=== PATIENT | male | born 1940 | race Caucasian/White ===

== ENCOUNTER 2017-12-24 05:06 | Emergency (ER) | payer MEDICARE, OTHER ==
[~2017-12-24] VITALS: Ht 175.3 cm; Wt 90.7 kg
[~2017-12-24 05:06] MED LIST: CETI10 PO; MECL25 PO; Norco 5-325 Ta1 EACH PO
[2017-12-24] MEDS ORDERED: Lotrel 5-40 MG1 EACH PO (06:00)
[2017-12-24] MEDS ORDERED: Mupirocin22 GM TOP (06:55)
[2017-12-24] MEDS ORDERED: Bactrim 400-801 EACH PO (06:55)
== END 2017-12-24 07:08 | disposition home or self-care (01) ==
LOC: ER 05:06
DX: L03.221 Cellulitis of neck (principal); L03.811 Cellulitis of head [any part, except face]; I10 Essential (primary) hypertension; Z87.891 Personal history of nicotine dependence; Z79.899 Other long term (current) drug therapy
CPT/HCPCS: 99283

== ENCOUNTER 2017-12-26 02:56 | Emergency (ER) | payer MEDICARE, OTHER ==
[~2017-12-26] VITALS: Ht 175.3 cm; Wt 90.7 kg
[~2017-12-26 02:56] MED LIST changes: +Bactrim 400-801 EACH PO; +Lotrel 5-40 MG1 EACH PO; +Mupirocin22 GM TOP
[2017-12-26] MEDS ORDERED: VALACYCLOVIR1000 MG PO (03:44)
[2017-12-26] MEDS ORDERED: Norco 5-325 Ta1 EACH PO (03:44)
[2017-12-26] MEDS ORDERED: Lacri-Lube S.O3.5 GM LEFTEYE (03:44)
[2017-12-26] MEDS ORDERED: Prednisone20 MG PO (03:45)
== END 2017-12-26 04:23 | disposition home or self-care (01) ==
LOC: ER 02:56
DX: G51.0 Bell's palsy (principal); L03.811 Cellulitis of head [any part, except face]; I10 Essential (primary) hypertension; Z79.899 Other long term (current) drug therapy; Z79.52 Long term (current) use of systemic steroids; Z87.891 Personal history of nicotine dependence
CPT/HCPCS: 99283

== ENCOUNTER → 2018-01-13 | Outpatient (CLI) | payer MEDICARE, OTHER ==
[~2018-01-13] MED LIST changes: +Lacri-Lube S.O3.5 GM LEFTEYE; +Prednisone20 MG PO; +VALACYCLOVIR1000 MG PO
[2018-01-13 14:58] LABS: Microalbumin, Urine Quant. <5.000 mg/L (0.000-20.000); Protein, Urine Quantitative <5.0 mg/dL (0.0-11.9)
== END ==
LOC: LAB 10:52 → LAB SHORT 10:52
PROVIDERS: Internal Medicine Nephrology
DX: N18.3 Chronic kidney disease, stage 3 (moderate) (principal); D63.1 Anemia in chronic kidney disease; R73.09 Other abnormal glucose; E78.00 Pure hypercholesterolemia, unspecified; E55.9 Vitamin D deficiency, unspecified; N25.81 Secondary hyperparathyroidism of renal origin; R76.9 Abnormal immunological finding in serum, unspecified; R94.5 Abnormal results of liver function studies; R94.6 Abnormal results of thyroid function studies
CPT/HCPCS: 81050; 82043; 84156